=== PATIENT | female | born 1995 | race Two or more races ===

== ENCOUNTER 2017-02-12 15:38 | Outpatient (CLI) | payer OTHER ==
--- NOTE | 2017-02-12 18:00 | MRI Report ---
EXAM: RIGHT HIP MRI WITHOUT CONTRAST EXAM DATE: 02/12/2017 04:32 PM. CLINICAL HISTORY: Pain for 6 months. Low back pain radiating into the right leg with tingling. COMPARISON: None. TECHNIQUE: Multiplanar, multisequence T1-weighted and fluid-sensitive, small gdjux-xa-ycal sequences of the hip and large ggnga-yx-pvje sequences of the pelvis without contrast. Other: None. FINDINGS: Bones and articular surfaces: No significant hip joint effusion. No osteochondral lesions. No signifi cant articular cartilage defects are identified. Visualized labrum appears intact on this non-arthrog raphic study. Marrow signal appears within normal limits. No evidence of acute fracture or stress makayla ction. No evidence of femoral head AVN. Left hip appears unremarkable. The sacroiliac joints appear s ymmetric and within normal limits. The pubic symphysis appears normal. Musculotendinous structures: No evidence of significant muscle tear, tendinosis or bursitis. No muscl e edema, atrophy or fatty replacement. Miscellaneous: No lymphadenopathy. No significant pelvic free fluid. IMPRESSION: 1. Right hip MRI within normal limits. [facility]CULOSKE[facility] SE[facility] Referring Provider Line: [phone] SITE ID: [id number]
--- NOTE | 2017-02-13 05:37 | MRI Report ---
EXAM: MRI LUMBAR SPINE WITHOUT CONTRAST EXAM DATE: 02/12/2017 04:52 PM. CLINICAL HISTORY: LOW BACK PAIN radiating into right leg. COMPARISON: None. TECHNIQUE: Multiplanar, multisequence T1-weighted and fluid-sensitive sequences of the lumbar spine f rom T12 to history without contrast. Other: None. FINDINGS: Spinal Cord: The conus terminates at . No signal abnormality in the visualized spinal cord. Alignment: Normal. No scoliosis or spondylolisthesis. Bone Marrow: Five bmd-iwq-armoubz lumbar vertebral bodies are assumed. No gross fractures or bone les ions. No bone marrow edema. Disk Levels/Facets: T12-L1: Unremarkable. L1-L2: Unremarkable. L2-L3: Unremarkable. L3-L4: Unremarkable. L4-L5: Unremarkable. L5-S1: There is disk desiccation. There is a 9 mm right subarticular disk extrusion. There is severe narrowing of the right subarticular zone (compressing descending right S1 nerve roots.). No significa nt neural foraminal narrowing. Musculature: Normal. No edema or fatty atrophy. Other: The visualized pelvic cavity is unremarkable. IMPRESSION: 1. L5-S1 disk extrusion with severe narrowing of right subarticular zone. [facility] Referring Provider Line: [phone] SITE ID: [id number]
== END 2017-02-12 15:39 | disposition home or self-care (01) ==
LOC: DI 15:38
PROVIDERS: ATTEND Nurse Practitioner Family
DX: M51.17 Intervertebral disc disorders with radiculopathy, lumbosacral region (principal); R20.2 Paresthesia of skin
CPT/HCPCS: 72148

== ENCOUNTER 2017-05-26 13:22 | Emergency (ER) | payer OTHER ==
[2017-05-26 13:38] VITALS: BP 136/90
[2017-05-26 13:58] LABS: RAPID STREP SCREEN REAGENT QC YELLOW (YELLOW)
[2017-05-26] MEDS ORDERED: DEXAMETHASONE 10 MG/ML VIAL PO STA (14:25)
--- NOTE | 2017-05-26 14:28 | ED Physician Documentation ---
PD HPI URI - Stated complaint Stated Complaint: THROAT PX - Chief complaint Chief Complaint: Heent - History obtained from History obtained from: Patient, Family - History of Present Illness Timing duration: Days (3) Timing details: Gradual onset Pain level max: 8 Pain level now: 8 Associated symptoms: Fever (subjective), Sore throat. No: Ear pain, Nasal congestion, Rhinorrhea, Sinus pain, Dry cough, Productive cough Contributing factors: No: Sick contact Improves by: Nothing Worsened by: Other (swallowing) Review of Systems Constitutional: reports: Fever Nose: denies: Rhinorrhea / runny nose, Congestion Throat: reports: Sore throat Respiratory: denies: Cough GI: denies: Nausea, Vomiting, Diarrhea : denies: Now EGA Skin: denies: Rash Musculoskeletal: denies: Neck pain, Back pain Neurologic: denies: Headache PD PAST MEDICAL HISTORY - Past Medical History Past Medical History: No - Past Surgical History Past Surgical History: Yes HEENT: Other - Present Medications Home Medications: Ambulatory Orders Medication Instructions Recorded Confirmed Ibuprofen [Motrin] 800 mg PO Q8H PRN #30 tablet 05/26/17 Penicillin V Potassium 500 mg PO Q6HR #40 tablet 05/26/17 - Allergies Allergies/Adverse Reactions: Allergies Allergy/AdvReac Type Severity Reaction Status Date / Time No Known Drug Allergies Allergy Verified 05/26/17 13:38 - Social History Does the pt smoke?: Yes Smoking Status: Current every day smoker Does the pt drink ETOH?: Yes Does the pt have substance abuse?: No - Immunizations Immunizations are current?: Yes PD ED PE NORMAL - Vitals Vital signs reviewed: Yes - General General: Alert and oriented X 3, No acute distress - HEENT HEENT: PERRL, Ears normal, Moist mucous membranes, Other (Diffuse erythema with moderate tonsillar swelling, ulcerations and exudates over the tonsils. Uvula midline. No trismus. Normal phonation.) - Neck Neck: Supple, no meningeal sign, Other (shotty anterior LAD) - Cardiac Cardiac: RRR - Respiratory Respiratory: No respiratory distress, Clear bilaterally - Abdomen Abdomen: Soft, Non tender, No organomegaly - Derm Derm: Warm and dry, No rash - Neuro Neuro: Alert and oriented X 3 - Psych Psych: Normal mood Results - Vitals Vitals: Vital Signs - 24 hr 05/26/17 13:34 Temperature 36.3 C L Heart Rate 98 Respiratory 14 Rate Blood Pressure 136/90 H O2 Saturation 100 Oxygen O2 Source Room air - Labs Labs: Laboratory Tests 05/26/17 13:37 Group A Strep Rapid Negative PD MEDICAL DECISION MAKING - ED course Complexity details: reviewed results, considered differential, d/w patient ED course: Patient is a 21-year-old female who presents to the emergency department with what appears to be streptococcal pharyngitis clinically. She has fevers, exudates, lymphadenopathy and lack of a cough. Her rapid strep is negative, but due to the poor sensitivity of this test, we will treat her with antibiotics. Given a dose of dexamethasone as well. She is tolerating p.o. well. No evidence of peritonsillar abscess, retropharyngeal abscess. Patient counseled regarding signs and symptoms for which I believe and urgent re- evaluation would be necessary. Patient with good understanding of and agreement to plan and is comfortable going home at this time This document was made in part using voice recognition software. While efforts are made to proofread this document, sound alike and grammatical errors may occur. Departure - Departure Disposition: 01 Home, Self Care Clinical Impression: Strep pharyngitis Condition: Good Instructions: ED Strep Pharyngitis Poss Follow-Up: your,doctor in 1 week [Other] Prescriptions: Penicillin V Potassium 500 mg PO Q6HR #40 tablet Ibuprofen [Motrin] 800 mg PO Q8H PRN #30 tablet PRN Reason: PAIN &/OR FEVER Comments: Take all antibiotics until gone. Return if you worsen. Discharge Date/Time: 05/26/17 14:38
[2017-05-26] MEDS ORDERED: CHERRY SYRUP 10 ML UDC PO ONE (14:33)
[2017-05-26] MEDS ORDERED: DEXAMETHASONE 10 MG/ML VIAL ONE (14:33)
== END 2017-05-26 14:38 | disposition home or self-care (01) ==
LOC: ED 13:22
DX: J02.0 Streptococcal pharyngitis (principal); F17.200 Nicotine dependence, unspecified, uncomplicated
CPT/HCPCS: 87070; 87430; 99282; 99283; A9270

== ENCOUNTER 2022-06-29 08:00 | Outpatient (CLI) | payer OTHER | END 2022-06-29 23:59 | disposition home or self-care (01) | LOC: LAB.R 08:00 | PROVIDERS: ATTEND Physician Assistant | DX: J03.90 Acute tonsillitis, unspecified (principal) | CPT/HCPCS: 87070 ==

== ENCOUNTER 2023-11-07 07:00 | Outpatient (CLI) | payer OTHER ==
--- NOTE | 2023-11-07 12:01 | XRAY Report ---
PROCEDURE: Chest 2V INDICATIONS: ACUTE COUGH/WHEEZING TECHNIQUE: 2 views of the chest were acquired. COMPARISON: None. FINDINGS: Surgical changes and devices: None. Lungs and pleura: No pleural effusions or pneumothorax. Lungs are clear. Mediastinum: Mediastinal contours appear normal. Heart size is normal. Bones and chest wall: No suspicious bony lesions. Overlying soft tissues appear unremarkable. IMPRESSION: No acute cardiopulmonary process. Reviewed by: uJan Swann MD on 11/07/2023 12:00 PM [facility] Approved by: Juan Swann MD on 11/07/2023 12:00 PM PST Station ID: [id number]
== END 2023-11-07 23:59 | disposition home or self-care (01) ==
LOC: DI.S 07:00
PROVIDERS: ATTEND Registered Nurse
DX: R05.1 Acute cough (principal); R06.2 Wheezing